=== PATIENT | male | born 1980 | race Caucasian/White ===

== ENCOUNTER 2017-04-10 22:42 | Emergency (ER) | payer OTHER ==
[2017-04-10 22:47] VITALS: RESP 18
[2017-04-11] MEDS ORDERED: DIPH,PERTUS(ACELL)TETVAC-LF 0.5 ML VIAL IM ONE (00:24)
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
[2017-04-11 01:03] VITALS: BP 115/58; PULSE 73; TEMP 98.5
== END 2017-04-11 01:01 | disposition home or self-care (01) ==
LOC: EC 22:42
DX: S51.812A Laceration without foreign body of left forearm, initial encounter (principal); Z23 Encounter for immunization; W22.8XXA Striking against or struck by other objects, initial encounter; Y93.89 Activity, other specified
CPT/HCPCS: 12001; 90471; 90715; 99282

== ENCOUNTER 2018-05-23 22:03 | Emergency (ER) | payer OTHER ==
[2018-05-23] MEDS ORDERED: SODIUM CHLORIDE 0.9% 1,000 ML IV STA ×2 (22:18)
[2018-05-23] MEDS ORDERED: ceFAZolin (PMX-bag) 1,000 MG in DEXTROSE/WATER 1 50ML.BAG IVPB STA (22:18)
[2018-05-23] MEDS ORDERED: ONDANSETRON 4 MG/2 ML VIAL IVP STA (22:18)
[2018-05-23] MEDS ORDERED: DIPH,PERTUS(ACELL)TETVAC-LF 0.5 ML VIAL IM ONE (22:18)
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
--- NOTE | 2018-05-23 22:55 | XR ---
EXAM: XR Left Ankle Complete, 3 or More Views CLINICAL HISTORY: ITS.REASON XR Reason: trauma TECHNIQUE: Frontal, lateral and oblique views of the left ankle. COMPARISON: None. FINDINGS: Bones/joints: Plantar fascia enthesophyte. No acute fracture. No dislocation. Soft tissues: Severe soft tissue swelling about the ankle. IMPRESSION: Severe soft tissue swelling about the ankle. No fracture or dislocation identified.
--- NOTE | 2018-05-23 22:56 | XR ---
EXAM: XR Chest, 1 View CLINICAL HISTORY: ITS.REASON XR Reason: trauma TECHNIQUE: Frontal view of the chest. COMPARISON: None. FINDINGS: Lungs: Unremarkable. No consolidation. Pleural space: Unremarkable. No pneumothorax. Heart: Unremarkable. No cardiomegaly. Mediastinum: Unremarkable. Bones/joints: Unremarkable. IMPRESSION: No acute cardiopulmonary abnormality or displaced fracture.
--- NOTE | 2018-05-23 22:58 | XR ---
EXAM: XR Pelvis, 1 or 2 Views CLINICAL HISTORY: ITS.REASON XR Reason: Trauma TECHNIQUE: Frontal view of the pelvis. COMPARISON: None. FINDINGS: Bones/joints: Unremarkable. No acute fracture. No dislocation. Soft tissues: Unremarkable. IMPRESSION: No fracture or dislocation.
[2018-05-23 23:31] VITALS: BP 104/56; PULSE 91; RESP 16; TEMP 97.7
--- NOTE | 2018-05-23 23:33 | CT ---
EXAM: CT Head Without Intravenous Contrast CLINICAL HISTORY: ITS.REASON CT Reason: trauma TECHNIQUE: Axial computed tomography images of the head/brain without intravenous contrast. CTDI is 45.2 mGy and DLP is 1065 mGy-cm. This CT exam was performed using one or more of the following dose reduction techniques: automated exposure control, adjustment of the mA and/or kV according to patient size, and/or use of iterative reconstruction technique. COMPARISON: None FINDINGS: Brain: Unremarkable. No hemorrhage. No significant white matter disease. No edema. Ventricles: Unremarkable. No ventriculomegaly. Bones/joints: Unremarkable. No acute fracture. Soft tissues: Unremarkable. Sinuses: There is a retention cyst in the left maxillary sinus. Mild mucosal thickening is seen in the ethmoid and sphenoid sinuses. Mastoid air cells: Unremarkable as visualized. No mastoid effusion. IMPRESSION: No intracranial hemorrhage or other acute intracranial abnormality. EXAM: CT Cervical Spine Without Intravenous Contrast CLINICAL HISTORY: ITS.REASON CT Reason: trauma TECHNIQUE: Axial computed tomography images of the cervical spine without intravenous contrast. CTDI is 17.7 mGy and DLP is 533.7 mGy-cm. This CT exam was performed using one or more of the following dose reduction techniques: automated exposure control, adjustment of the mA and/or kV according to patient size, and/or use of iterative reconstruction technique. COMPARISON: None FINDINGS: Vertebrae: Unremarkable. No acute fracture. Discs/spinal canal/neural foramina: Mild degenerative changes seen cervical spine without high-grade spinal canal stenosis. Soft tissues: Unremarkable. IMPRESSION: No fracture or traumatic malalignment of the cervical spine.
--- NOTE | 2018-05-23 23:41 | CT ---
EXAM: CT Chest With Intravenous Contrast CLINICAL HISTORY: ITS.REASON CT Reason: trauma TECHNIQUE: Axial computed tomography images of the chest with intravenous contrast. CTDI is 15.5 mGy and DLP is 1206 mGy-cm. This CT exam was performed using one or more of the following dose reduction techniques: automated exposure control, adjustment of the mA and/or kV according to patient size, and/or use of iterative reconstruction technique. COMPARISON: Chest radiograph 05/23/2018. FINDINGS: Lungs: Unremarkable. No mass. No consolidation. Pleural space: Unremarkable. No pneumothorax. No significant effusion. Heart: Unremarkable. No cardiomegaly. No significant pericardial effusion. Bones/joints: Unremarkable. No acute fracture. No dislocation. Soft tissues: Unremarkable. Vasculature: Unremarkable. No thoracic aortic aneurysm. Lymph nodes: Unremarkable. No enlarged lymph nodes. IMPRESSION: No acute traumatic abnormality in the chest. EXAM: CT Abdomen and Pelvis With Intravenous Contrast CLINICAL HISTORY: ITS.REASON CT Reason: trauma TECHNIQUE: Axial computed tomography images of the abdomen and pelvis with intravenous contrast. CTDI is 15.5 mGy and DLP is 1206 mGy-cm. This CT exam was performed using one or more of the following dose reduction techniques: automated exposure control, adjustment of the mA and/or kV according to patient size, and/or use of iterative reconstruction technique. COMPARISON: Pelvis radiograph 05/23/2018 FINDINGS: Lung bases: Unremarkable. No mass. No consolidation. ABDOMEN: Liver: Unremarkable. No mass. Gallbladder and bile ducts: Unremarkable. No calcified stones. No ductal dilation. Pancreas: Unremarkable. No mass. No ductal dilation. Spleen: Unremarkable. No splenomegaly. Adrenals: Unremarkable. No mass. Kidneys and ureters: Unremarkable. No solid mass. No hydronephrosis. Stomach and bowel: Moderate colonic stool burden. No obstruction. No mucosal thickening. PELVIS: Appendix: No findings to suggest acute appendicitis. Bladder: The urinary bladder is markedly distended. Reproductive: Unremarkable as visualized. ABDOMEN and PELVIS: Intraperitoneal space: Unremarkable. No free air. No significant fluid collection. Bones/joints: No acute fracture. No dislocation. Soft tissues: Soft tissue contusion overlying the left gluteus aric. Vasculature: Unremarkable. No abdominal aortic aneurysm. Lymph nodes: Unremarkable. No enlarged lymph nodes. IMPRESSION: Soft tissue contusion overlying the left gluteus aric. Otherwise, no acute traumatic abnormality of the abdomen or pelvis.
[2018-05-23 23:44] LABS: Basophils # (A) 0.1 k/uL (0-0.2); Basophils % (A) 1 %; Eosinophils # (A) 0.1 k/uL (0-0.7); Eosinophils % (A) 2 %; HCT 43.1 % (39.0-53.0); HGB 14.7 gm/dL (13.0-17.5); Lymphocytes # (A) 1.9 k/uL (1.0-4.8); Lymphocytes % (A) 20 %; MCH 30.8 pg (25.0-35.0); MCHC 34.1 g/dL (31.0-37.0); MCV 90.3 fL (80.0-100.0); Mean Platelet Volume 10.9; Monocytes # (A) 0.6 k/uL (0-1.0); Monocytes % (A) 6 %; Neutrophils # (A) 6.7 k/uL (1.3-7.7); Neutrophils % (A) 70 %; Platelet Count 116 k/uL (150-450); RBC 4.77 m/uL (4.30-5.90); RDW 14.9 % (11.5-15.5); WBC 9.5 k/uL (3.8-10.6)
[2018-05-23 23:46] LABS: ALT 54 U/L (21-72); AST 38 U/L (17-59); Albumin 4.5 g/dL (3.5-5.0); Alkaline Phosphatase 58 U/L (38-126); Amylase 57 U/L (30-110); Anion Gap 15 mmol/L; Blood Urea Nitrogen 15 mg/dL (9-20); Calcium 9.3 mg/dL (8.4-10.2); Carbon Dioxide 21 mmol/L (22-30); Chloride 100 mmol/L (98-107); Glucose 89 mg/dL (74-99); Lipase 195 U/L (23-300); Potassium 3.7 mmol/L (3.5-5.1); Sodium 136 mmol/L (137-145); Total Bilirubin 0.8 mg/dL (0.2-1.3)
--- NOTE | 2018-05-23 23:47 | CT ---
EXAM: CT Left Lower Extremity Without Intravenous Contrast, Ankle CLINICAL HISTORY: ITS.REASON CT Reason: Pain TECHNIQUE: Axial computed tomography images of the left ankle without intravenous contrast. CTDI is 8.6 mGy and DLP is 281 mGy-cm. This CT exam was performed using one or more of the following dose reduction techniques: automated exposure control, adjustment of the mA and/or kV according to patient size, and/or use of iterative reconstruction technique. COMPARISON: Left ankle radiographs 05/23/2018 FINDINGS: Bones/joints: Probable small avulsion fragment of the cuboid. Small probable avulsion fragment of the medial malleolus. No dislocation. Soft tissues: Severe soft tissue swelling about the ankle. IMPRESSION: 1. Probable small avulsion fragment of the cuboid. 2. Small probable avulsion fragment of the medial malleolus. 3. Severe soft tissue swelling about the ankle.
--- NOTE | 2018-05-23 23:50 | CT ---
EXAM: CT Left Lower Extremity Without Intravenous Contrast, Foot CLINICAL HISTORY: ITS.REASON CT Reason: Pain TECHNIQUE: Axial computed tomography images of the left foot without intravenous contrast. CTDI is a 8.7 mGy and DLP is 267.7 mGy-cm. This CT exam was performed using one or more of the following dose reduction techniques: automated exposure control, adjustment of the mA and/or kV according to patient size, and/or use of iterative reconstruction technique. COMPARISON: CTA: 05/23/2018. FINDINGS: Bones/joints: Small probable avulsion fragments of the cuboid and the medial malleolus are again demonstrated. No acute fracture. No dislocation. Soft tissues: Severe soft tissue swelling about the ankle. No radiopaque foreign body. IMPRESSION: 1. Small probable avulsion fragments of the cuboid and the medial malleolus are again demonstrated. Otherwise, no fracture or dislocation of the foot is identified. 2. Severe soft tissue swelling about the ankle.
[2018-05-24 00:09] LABS: Creatine Kinase MB 1.7 ng/mL (0.0-2.4)
[2018-05-24 00:19] LABS: Alcohol 218 mg/dL
[2018-05-24] MEDS ORDERED: KETOROLAC 30 MG/ML 1 ML VIAL IVP STA (00:20)
[2018-05-24] MEDS ORDERED: Acetaminophen-Codeine 300-30mg TAB PO STA (00:20)
[2018-05-24] MEDS ORDERED: ACET/COD 300 MG/30 MG STARTER PACK 6 TAB BTL PO STA (00:20)
[2018-05-24 00:27] LABS: Partial Thromboplastin Time 26.2 sec (22.0-30.0); Prothrombin Time 10.7 sec (9.0-12.0)
[2018-05-24 00:33] LABS: Appearance,Urine Clear (Clear); Bilirubin,Urine Negative (Negative); Blood,Urine Negative (Negative); Color,Urine Light Yellow; Glucose,Urine (UA) Negative (Negative); Ketones,Urine Negative (Negative); Leukocyte Esterase,Urine Negative (Negative); Nitrite,Urine Negative (Negative); PH, Urine 6.5 (5.0-8.0); Protein,Urine Negative (Negative); Specific Gravity,Urine 1.011 (1.001-1.035); Urobilinogen,Urine <2.0 mg/dL (<2.0)
[2018-05-24 00:51] LABS: Amphetamine Screen,Urine Not Detected (NotDetected); Barbiturate Screen,Urine Not Detected (NotDetected); Benzodiazepines Screen,Urine Not Detected (NotDetected); Cocaine Screen,Urine Not Detected (NotDetected); Methadone Screen, Urine Not Detected (NotDetected); Opiate Screen,Urine Not Detected (NotDetected); Oxycodone Screen, Urine Not Detected (NotDetected); Phencyclidine Screen,Urine Not Detected (NotDetected); Tricyclic Antidepressant,Urine Not Detected (NotDetected); Urn Cannabinoid Scrn Not Detected (NotDetected)
== END 2018-05-24 02:37 | disposition home or self-care (01) ==
LOC: EC 22:03
DX: S92.212A Displaced fracture of cuboid bone of left foot, initial encounter for closed fracture (principal); S70.312A Abrasion, left thigh, initial encounter; S20.319A Abrasion of unspecified front wall of thorax, initial encounter; Z53.29 Procedure and treatment not carried out because of patient's decision for other reasons; V86.06XA Driver of dirt bike or motor/cross bike injured in traffic accident, initial encounter
CPT/HCPCS: 99285; 29515; 96365; 96375; 96376; 36415 ×2; 93005; 80053; 82150; 82550; 82553; 83605; 83690; 85025; 85610; 85730; 81003; 80306; 72170; 73610; 71045; 72125; 70450; 71260; 74177; 73700 ×2; G0480; J1885; J0690; Q9967; 80320; 84484

== ENCOUNTER → 2023-06-26 | Outpatient (CLI) | payer SELFPAY ==
--- NOTE | 2023-06-26 20:06 | CA ---
Exercise Stress Test Report Name: Mau Lubin Exam Date: 06/26/2023 10:07 Exam Location: [place] Stress Ht (in): 61 Wt (lb): 228 BSA: 2.00 Ordering Phys: Deng Nam DO Referring Phys: Deng Nam DO Technologist: Ruth Stovall RDCS Age: 42 Gender: M : 1980 Procedure CPT: Indications: R07.9 CHEST PAIN I10 HTN ICD-10 Codes: Patient History: Medications: LISINOPRIL Meds past 24 hrs: Pretest Chest Pain: STRESS TEST Nixon Protocol Exercise Duration (min:sec): 11:[address] Depressions (mm): Angina Score: Valero Score: Resting HR (bpm): 78 Peak HR (bpm): 159 Resting BP (mmHg): 145 / 91 Peak BP (mmHg): 210 / 66 MPHR: 179 Target HR: 152 % MPHR: 89 METS: 12.1 Total Dose: Peak Dose: Atropine: Double Product: 16251 BP Response: Stress Termination: Reached target heart rate Stress Symptoms: NO SYMPTOMS Stress Summary: ECG ANALYSIS Resting ECG: Stress ECG: CONCLUSIONS Good exercise tolerance Normal electrocardiogram stress testing Dr. Yared Gonzalez MD (Electronically Signed) Final Date: 26 Jun 2023 20:05
== END | disposition home or self-care (01) ==
LOC: RADNMMAIN 09:37
PROVIDERS: ATTEND Family Medicine
DX: R07.9 Chest pain, unspecified (principal); I10 Essential (primary) hypertension
CPT/HCPCS: 93017

== ENCOUNTER 2024-07-25 17:34 | Emergency (ER) | payer OTHER ==
--- NOTE | 2024-07-25 18:01 | ED ---
Back Pain HPI - General Chief Complaint: Back Pain/Injury Stated Complaint: Back Pain/Numbness down R leg Time Seen by Provider: 07/25/24 17:45 Source: patient, family, RN notes reviewed Limitations: no limitations - History of Present Illness Initial Comments: 44-year-old male presents emergency room with complaints of lumbar back pain with radiation into the anterior posterior right leg described as a tingling sensation. Patient states that on he was picking up something heavy when he felt a pulling sensation in his back. He states he has been taking Tylenol Motrin, however this is not helped alleviate symptoms. He states that he has been experiencing muscle spasms of his right thigh. He denies falls, loss of bladder bowel control, saddle esthesia, previous surgeries of the lower back. Denies dysuria or hematuria. - Related Data Previous Rx's Medication Instructions Recorded Cyclobenzaprine [Flexeril] 10 mg PO TID PRN #15 tab 07/25/24 Ibuprofen [Motrin] 800 mg PO Q8HR PRN #30 tab 07/25/24 Allergies Allergy/AdvReac Type Severity Reaction Status Date / Time No Known Allergies Allergy Verified 05/23/18 23:31 Review of Systems ROS Statement: Those systems with pertinent positive or pertinent negative responses have been documented in the HPI. ROS Other: All systems not noted in ROS Statement are negative. Past Medical History Past Medical History: No Reported History History of Any Multi-Drug Resistant Organisms: None Reported Additional Past Surgical History / Comment(s): left leg - acl Past Psychological History: No Psychological Hx Reported Past Alcohol Use History: Occasional Past Drug Use History: None Reported General Exam Limitations: no limitations General appearance: alert, in no apparent distress Neck exam: Present: normal inspection. Absent: tenderness, meningismus, lymphadenopathy Respiratory exam: Present: normal lung sounds bilaterally. Absent: respiratory distress, wheezes, rales, rhonchi, stridor Cardiovascular Exam: Present: regular rate, normal rhythm, normal heart sounds. Absent: systolic murmur, diastolic murmur, rubs, gallop, clicks GI/Abdominal exam: Present: soft, normal bowel sounds. Absent: distended, tenderness, guarding, rebound, rigid Extremities exam: Present: normal inspection, full ROM, normal capillary refill. Absent: tenderness, pedal edema, joint swelling, calf tenderness Back exam: Present: tenderness (lumbar spine). Absent: CVA tenderness (R), CVA tenderness (L) Expanded Back exam: Positive Straight Leg Raise: Right Neurological exam: Present: alert, oriented X3, CN II-XII intact Course Vital Signs 07/25/24 07/25/24 17:42 19:04 Temperature 98 F 98.0 F Pulse Rate 84 76 Respiratory 16 18 Rate Blood Pressure 177/91 170/86 O2 Sat by Pulse 98 99 Oximetry Medical Decision Making - Medical Decision Making Was pt. sent in by a medical professional or institution (, PA, MILITARY SCIENCE INSTRUCTOR, urgent care, hospital, or group home...) When possible be specific @ -No Did you speak to anyone other than the patient for history (EMS, parent, family, police, friend...)? What history was obtained from this source @ -No Did you review nursing and triage notes (agree or disagree)? Why? @ -I reviewed and agree with nursing and triage notes Were old charts reviewed (outside hosp., previous admission, EMS record, old EKG, old radiological studies, urgent care reports/EKG's, group home records)? Report findings @ -No old charts were reviewed Differential Diagnosis (chest pain, altered mental status, abdominal pain women, abdominal pain men, vaginal bleeding, weakness, fever, dyspnea, syncope, headache, dizziness, GI bleed, back pain, seizure, CVA, palpatations, mental health, musculoskeletal)? @ -Differential Back Pain: Strain, zoster, cauda equina syndrome, epidural abscess, vertebral osteomyelitis, discitis, fracture, subluxation, disc herniation, DJD, spinal stenosis, dissection, AAA, pancreatitis, peptic ulcer disease, pyelonephritis, kidney stone, this is not meant to be an all-inclusive list. EKG interpreted by me (3pts min.). @ -None X-rays interpreted by me (1pt min.). @ -X-ray imaging of the lumbar spine no fractures or dislocations noted. CT interpreted by me (1pt min.). @ -None done U/S interpreted by me (1pt. min.). @ -None done What testing was considered but not performed or refused? (CT, X-rays, U/S, labs)? Why? @ -None What meds were considered but not given or refused? Why? @ -None Did you discuss the management of the patient with other professionals (professionals i.e. DrMel, PA, MILITARY SCIENCE INSTRUCTOR, lab, RT, psych nurse, home health care social worker, congregational care pastor, teacher, logistics officer, geriatric case manager)? Give summary @ -No Was smoking cessation discussed for >3mins.? @ -No Was critical care preformed (if so, how long)? @ -No Were there social determinants of health that impacted care today? How? (Homelessness, low income, unemployed, alcoholism, drug addiction, transportation, low edu. Level, literacy, decrease access to med. care, long term, rehab)? @ -No Was there de-escalation of care discussed even if they declined (Discuss DNR or withdrawal of care, Hospice)? DNR status @ -No What co-morbidities impacted this encounter? (DM, HTN, Smoking, COPD, CAD, Cancer, CVA, ARF, Chemo, Hep., AIDS, mental health diagnosis, sleep apnea, morbid obesity)? @ -None Was patient admitted / discharged? Hospital course, mention meds given and route, prescriptions, significant lab abnormalities, going to OR and other pertinent info. @ -Discharge. 44 male presenting with lumbar back pain and radiculopathy. There are no red flag findings concerning for cauda equina. Pain is reproducible on examination patient has a straight leg test positive on the right side. Patient provided with pain control. X-ray imaging is unremarkable. Patient is discharged with muscle relaxers and have discussed supportive treatment at bedside. Case discussed with Dr. Garcia Undiagnosed new problem with uncertain prognosis? @ -No Drug Therapy requiring intensive monitoring for toxicity (Heparin, Nitro, Insulin, Cardizem)? @ -No Were any procedures done? @ -No Diagnosis/symptom? @ -Lumbar back pain radiculopathy Acute, or Chronic, or Acute on Chronic? @ -Acute Uncomplicated (without systemic symptoms) or Complicated (systemic symptoms)? @ -Uncomplicated Side effects of treatment? @ -No Exacerbation, Progression, or Severe Exacerbation? @ -No Poses a threat to life or bodily function? How? (Chest pain, [place], [place], pneumonia, PE, COPD, DKA, ARF, appy, cholecystitis, CVA, Diverticulitis, Homicidal, Suicidal, threat to staff... and all critical care pts) @ -No Disposition Clinical Impression: Muscle spasm Disposition: HOME SELF-CARE Condition: Stable Instructions (If sedation given, give patient instructions): Muscle Spasm (ED) Additional Instructions: Please return to the Emergency Department if symptoms worsen or any other concerns. Prescriptions: Cyclobenzaprine [Flexeril] 10 mg PO TID PRN #15 tab PRN Reason: Muscle Spasm Ibuprofen [Motrin] 800 mg PO Q8HR PRN #30 tab PRN Reason: Pain Is patient prescribed a controlled substance at d/c from ED?: No Referrals: Deng Nam Jr, [Primary Care Provider] - 1-2 days Time of Disposition: 18:55
[2024-07-25] MEDS: HYDROcodone/APAP 7.5-325MG 1 EACH TAB PO ONE (18:05)
[2024-07-25] MEDS: ORPHENADRINE 30 MG/ML 2 ML VIAL IM STA (18:05)
[2024-07-25] MEDS: LIDOCAINE 4% PATCH TOPICAL ONE (18:09)
[2024-07-25] MEDS: predniSONE 50 MG TAB PO STA (18:15)
--- NOTE | 2024-07-25 18:50 | XR ---
EXAMINATION TYPE: XR lumbar spine 2 or 3V DATE OF EXAM: 07/25/2024 6:31 PM COMPARISON: None. CLINICAL INDICATION: Male, 44 years old with history of pain w/ radiation, pain TECHNIQUE: 3 view(s) obtained. FINDINGS: There are 5 lumbar-type vertebral bodies. Pedicles are intact. There is narrowing of the L5-S1 disc h eight. Remaining disc heights are preserved. Heights are preserved. Vertebral body heights are preser tracy. Alignment appears normal. IMPRESSION: 1. Degenerative disc change L5-S1. [facility], , 07/25/2024 6:47 PM
[2024-07-25] MEDS: ACET/COD 300 MG/30 MG STARTER PACK 6 TAB BTL PO STA (18:59)
[2024-07-25] MEDS: traMADol 50 MG STARTER PACK 3 TAB BTL PO STA (18:59)
[2024-07-25 19:05] VITALS: BP 170/86; PULSE 76; RESP 18; TEMP 98
== END 2024-07-25 20:40 | disposition home or self-care (01) ==
LOC: EC 17:34
DX: M54.16 Radiculopathy, lumbar region (principal); M62.830 Muscle spasm of back
CPT/HCPCS: 72100; 99283; 96372; J2360; J7512

== ENCOUNTER 2024-08-22 22:07 | Emergency (ER) | payer OTHER ==
[2024-08-22 22:10] VITALS: TEMP 98
--- NOTE | 2024-08-22 22:24 | ED ---
General Adult HPI - General Chief complaint: Dizziness Stated complaint: Neuro symptoms Time Seen by Provider: 08/22/24 22:13 Source: patient Mode of arrival: ambulatory Limitations: no limitations - History of Present Illness Initial comments: This patient is a 44-year-old man who presents to have evaluation because he says that he does not feel like his usual self. He describes feeling dizzy, feeling shaky and anxious. The patient states that this has come on over the course of the evening. He had been at home he states and not unusually exerting himself. The patient does note that he drinks regularly. He states he can drink up to a case of beer on the weekends but today he only had 8-9 beers. Onset/Timin -: days(s) Severity scale (1-10): 0 Consistency: constant Improves with: none Worsens with: none Associated Symptoms: other (Feeling dizzy and paresthesias) - Related Data Previous Rx's Medication Instructions Recorded Cyclobenzaprine [Flexeril] 10 mg PO TID PRN #15 tab 07/25/24 Ibuprofen [Motrin] 800 mg PO Q8HR PRN #30 tab 07/25/24 Allergies Allergy/AdvReac Type Severity Reaction Status Date / Time No Known Allergies Allergy Verified 08/22/24 22:10 Review of Systems ROS Statement: Those systems with pertinent positive or pertinent negative responses have been documented in the HPI. ROS Other: All systems not noted in ROS Statement are negative. Constitutional: Denies: fever, chills, weakness Eyes: Denies: vision change Respiratory: Denies: cough, dyspnea, wheezes Cardiovascular: Reports: palpitations. Denies: chest pain, orthopnea, edema, syncope Gastrointestinal: Denies: abdominal pain, nausea, vomiting, diarrhea Genitourinary: Denies: dysuria, hematuria Musculoskeletal: Denies: back pain Skin: Denies: rash Neurological: Denies: headache, weakness, numbness Psychiatric: Reports: anxiety. Denies: depression, suicidal thoughts Past Medical History Past Medical History: No Reported History History of Any Multi-Drug Resistant Organisms: None Reported Additional Past Surgical History / Comment(s): left leg - acl Past Psychological History: No Psychological Hx Reported Smoking Status: Never smoker Past Alcohol Use History: Occasional Past Drug Use History: None Reported General Exam Limitations: no limitations General appearance: alert, in no apparent distress, anxious Head exam: Present: atraumatic, normocephalic Eye exam: Present: normal appearance, PERRL, EOMI. Absent: scleral icterus, conjunctival injection ENT exam: Present: mucous membranes dry Neck exam: Present: normal inspection, full ROM Respiratory exam: Present: normal lung sounds bilaterally. Absent: respiratory distress, wheezes, rales, rhonchi, stridor, accessory muscle use Cardiovascular Exam: Present: regular rate, normal rhythm, normal heart sounds. Absent: systolic murmur, diastolic murmur, rubs, gallop GI/Abdominal exam: Present: soft. Absent: distended, tenderness, guarding, rebound, rigid, mass Extremities exam: Present: normal inspection, normal capillary refill. Absent: pedal edema, calf tenderness Back exam: Present: normal inspection. Absent: CVA tenderness (R), CVA tenderness (L) Neurological exam: Present: alert, oriented X3, CN II-XII intact, motor sensory deficit Psychiatric exam: Present: anxious. Absent: suicidal ideation Skin exam: Present: warm, dry, intact, normal color. Absent: rash Course Vital Signs 08/22/24 08/22/24 08/22/24 22:08 22:58 23:58 Temperature 98 F Pulse Rate 119 H 84 85 Respiratory 20 18 18 Rate Blood Pressure 189/112 161/110 154/101 O2 Sat by Pulse 99 99 97 Oximetry 08/23/24 00:43 Temperature Pulse Rate 96 Respiratory 18 Rate Blood Pressure 148/97 O2 Sat by Pulse 98 Oximetry EKG Findings - EKG Results: EKG: interpreted by ERMD, sinus rhythm, normal axis (Normal), normal QRS (Normal), normal ST/T (Normal) EKG shows: tachycardia (Rate 108 bpm) Medical Decision Making - Medical Decision Making The patient had chest x-ray that I interpreted as negative for acute infiltrate, pneumothorax, congestive heart failure Was pt. sent in by a medical professional or institution (, PA, SECURITY ASSURANCE SPECIALIST, urgent care, hospital, or senior care...) When possible be specific @ -[No] Did you speak to anyone other than the patient for history (EMS, parent, family, police, friend...)? What history was obtained from this source @ -[No] Did you review nursing and triage notes (agree or disagree)? Why? @ -[I reviewed and agree with nursing and triage notes] Were old charts reviewed (outside hosp., previous admission, EMS record, old EKG, old radiological studies, urgent care reports/EKG's, senior care records)? Report findings @ -[No old charts were reviewed] Differential Diagnosis (chest pain, altered mental status, abdominal pain women, abdominal pain men, vaginal bleeding, weakness, fever, dyspnea, syncope, headache, dizziness, GI bleed, back pain, seizure, CVA, palpatations, mental health, musculoskeletal)? @ -[Differential Dizziness: Benign paroxysmal positional Vertigo, Meniere's disease, otitis media, acoustic neuroma, vertebrobasilar insufficiency, cerebellar stroke, encephalitis, hypovolemic, arrhythmia, coronary artery syndrome, anemia, this is not meant to be an all-inclusive list EKG interpreted by me (3pts min.). @ -[I interpreted as above] X-rays interpreted by me (1pt min.). @ -[I interpreted as above CT interpreted by me (1pt min.). @ -[None done] U/S interpreted by me (1pt. min.). @ -[None done] What testing was considered but not performed or refused? (CT, X-rays, U/S, labs)? Why? @ -[None] What meds were considered but not given or refused? Why? @ -[None] Did you discuss the management of the patient with other professionals (professionals i.e. , PA, SECURITY ASSURANCE SPECIALIST, lab, RT, psych nurse, director of social work, dynamite shooter, teacher, staff submarine warfare officer, mental health case manager)? Give summary @ -[No] Was smoking cessation discussed for >3mins.? @ -[No] Was critical care preformed (if so, how long)? @ -[No] Were there social determinants of health that impacted care today? How? (Ho melessness, low income, unemployed, alcoholism, drug addiction, transportation, low edu. Level, literacy, decrease access to med. care, care home, rehab)? @ -[No] Was there de-escalation of care discussed even if they declined (Discuss DNR or withdrawal of care, Hospice)? DNR status @ -[No] What co-morbidities impacted this encounter? (DM, HTN, Smoking, COPD, CAD, Cancer, CVA, ARF, Chemo, Hep., AIDS, mental health diagnosis, sleep apnea, morbid obesity)? @ -[None] Was patient admitted / discharged? Hospital course, mention meds given and route, prescriptions, significant lab abnormalities, going to OR and other pertinent info. @ -This patient is a 44-year-old man who presents for to have evaluation with a constellation of symptoms concerning for alcohol withdrawal. The patient had much less intake this week and then his usual for him. Discussed with the patient tapering off of his alcohol use. He is feeling better here with fluids, benzodiazepines. Discussed that should he be feeling worse in any way he should return to have supervised alcohol withdrawal. The patient states that he does have a close relationship with his primary physician and should be able to help manage decreasing his alcohol that way. Also discussed management of the patient's hypertension, appropriate follow-up and further care related that issue. Undiagnosed new problem with uncertain prognosis? @ -[No] Drug Therapy requiring intensive monitoring for toxicity (Heparin, Nitro, Insulin, Cardizem)? @ -[No] Were any procedures done? @ -[No] Diagnosis/symptom? @ -[Acute on chronic hypertension Alcohol withdrawal symptoms Acute, or Chronic, or Acute on Chronic? @ -[Acute Uncomplicated (without systemic symptoms) or Complicated (systemic symptoms)? @ -[Uncomplicated Side effects of treatment? @ -[No] Exacerbation, Progression, or Severe Exacerbation? @ -[No] Poses a threat to life or bodily function? How? (Chest pain, [place], [place], pneumonia, PE, COPD, DKA, ARF, appy, cholecystitis, CVA, Diverticulitis, Homicidal, Suicidal, threat to staff... and all critical care pts) @ -[Yes there is risk associated with both these problems, appropriate further care discussed, as well as return parameters - Lab Data Result diagrams: 08/22/24 22:25 08/22/24 22:25 Lab Results 08/22/24 08/22/24 08/22/24 Range/Units :25 22:25 : WBC 9.16 (4.50-10.00) 10*3/uL RBC 4.66 (4.40-5.60) 10*6/uL Hgb 15.1 (13.0-17.0) g/dL Hct 43.5 (39.6-50.0) % MCV 93.3 (80.0-97.0) fL MCH 32.4 H (27.0-32.0) pg MCHC 34.7 (32.0-37.0) g/dL Plt Count 202 (140-440) 10*3/uL MPV 9.0 L (9.5-12.2) fL Immature Gran % (Auto) 0.9 % Neutrophils % 59.5 % Lymphocytes % 30.5 % Monocytes % 7.2 % Eosinophils % 1.1 % Basophils % 0.8 % Immature Gran # 0.08 H (0.00-0.04) 10*3/uL Neutrophils # 5.46 (1.80-7.70) 10*3/uL Lymphocytes # 2.79 (0.90-5.00) 10*3/uL Monocytes # 0.66 (0.20-1.00) 10*3/uL Eosinophils # 0.10 (0.04-0.35) 10*3/uL Basophils # 0.07 (0.00-0.10) 10*3/uL Sodium 138 (137-145) mmol/L Potassium 4.1 (3.5-5.1) mmol/L Chloride 101 (98-107) mmol/L Carbon Dioxide 24 (22-30) mmol/L Anion Gap 13 mmol/L BUN 13 (9-20) mg/dL Creatinine 0.67 (0.66-1.25) mg/dL Est GFR (CKD-EPI)AfAm >90 (>60 ml/min/1.73 sqM) Est GFR (CKD-EPI)NonAf >90 (>60 ml/min/1.73 sqM) Glucose 115 H (74-99) mg/dL Lactic Ac Sepsis Rflx Plasma Lactic Acid Jose 2.4 H* (0.7-2.0) mmol/L Calcium 10.2 (8.4-10.2) mg/dL Magnesium 1.9 (1.6-2.3) mg/dL Total Bilirubin 0.8 (0.2-1.3) mg/dL AST 51 (17-59) U/L ALT 68 H (4-49) U/L Alkaline Phosphatase 70 (38-126) U/L Troponin I (0.000-0.034) ng/mL Total Protein 8.0 (6.3-8.2) g/dL Albumin 5.0 (3.5-5.0) g/dL Urine Color Urine Appearance (Clear) Urine pH (5.0-8.0) Ur Specific [place] (1.001-1.035) Urine Protein (Negative) Urine Glucose (UA) (Negative) Urine Ketones (Negative) Urine Blood (Negative) Urine Nitrite (Negative) Urine Bilirubin (Negative) Urine Urobilinogen (<2.0) mg/dL Ur Leukocyte Esterase (Negative) Serum Alcohol 130 mg/dL 08/22/24 08/22/24 08/22/24 Range/Units 22:25 23:31 23:57 WBC (4.50-10.00) 10*3/uL RBC (4.40-5.60) 10*6/uL Hgb (13.0-17.0) g/dL Hct (39.6-50.0) % MCV (80.0-97.0) fL MCH (27.0-32.0) pg MCHC (32.0-37.0) g/dL Plt Count (140-440) 10*3/uL MPV (9.5-12.2) fL Immature Gran % (Auto) % Neutrophils % % Lymphocytes % % Monocytes % % Eosinophils % % Basophils % % Immature Gran # (0.00-0.04) 10*3/uL Neutrophils # (1.80-7.70) 10*3/uL Lymphocytes # (0.90-5.00) 10*3/uL Monocytes # (0.20-1.00) 10*3/uL Eosinophils # (0.04-0.35) 10*3/uL Basophils # (0.00-0.10) 10*3/uL Sodium (137-145) mmol/L Potassium (3.5-5.1) mmol/L Chloride (98-107) mmol/L Carbon Dioxide (22-30) mmol/L Anion Gap mmol/L BUN (9-20) mg/dL Creatinine (0.66-1.25) mg/dL Est GFR (CKD-EPI)AfAm (>60 ml/min/1.73 sqM) Est GFR (CKD-EPI)NonAf (>60 ml/min/1.73 sqM) Glucose (74-99) mg/dL Lactic Ac Sepsis Rflx Y Plasma Lactic Acid Jose (0.7-2.0) mmol/L Calcium (8.4-10.2) mg/dL Magnesium (1.6-2.3) mg/dL Total Bilirubin (0.2-1.3) mg/dL AST (17-59) U/L ALT (4-49) U/L Alkaline Phosphatase (38-126) U/L Troponin I <0.012 (0.000-0.034) ng/mL Total Protein (6.3-8.2) g/dL Albumin (3.5-5.0) g/dL Urine Color Colorless Urine Appearance Clear (Clear) Urine pH 5.5 (5.0-8.0) Ur Specific [place] 1.001 (1.001-1.035) Urine Protein Negative (Negative) Urine Glucose (UA) Negative (Negative) Urine Ketones Negative (Negative) Urine Blood Negative (Negative) Urine Nitrite Negative (Negative) Urine Bilirubin Negative (Negative) Urine Urobilinogen <2.0 (<2.0) mg/dL Ur Leukocyte Esterase Negative (Negative) Serum Alcohol mg/dL Disposition Clinical Impression: Hypertension, Alcohol abuse Disposition: HOME SELF-CARE Condition: Good Instructions (If sedation given, give patient instructions): Hypertension (ED) Is patient prescribed a controlled substance at d/c from ED?: No Referrals: Deng Nam Jr, [Primary Care Provider] - 1-2 days
[2024-08-22 22:39] LABS: Basophils # (A) 0.07 10*3/uL (0.00-0.10); Basophils % (A) 0.8 %; Eosinophils # (A) 0.10 10*3/uL (0.04-0.35); Eosinophils % (A) 1.1 %; HCT 43.5 % (39.6-50.0); HGB 15.1 g/dL (13.0-17.0); Lymphocytes # (A) 2.79 10*3/uL (0.90-5.00); Lymphocytes % (A) 30.5 %; MCH 32.4 pg (27.0-32.0); MCHC 34.7 g/dL (32.0-37.0); MCV 93.3 fL (80.0-97.0); Monocytes # (A) 0.66 10*3/uL (0.20-1.00); Monocytes % (A) 7.2 %; Neutrophils # (A) 5.46 10*3/uL (1.80-7.70); Neutrophils % (A) 59.5 %; Platelet Count 202 10*3/uL (140-440); RBC 4.66 10*6/uL (4.40-5.60); RDW 12.0 % (11.5-14.5); WBC 9.16 10*3/uL (4.50-10.00)
[2024-08-22] MEDS: SODIUM CHLORIDE 0.9% 1,000 ML IV STA (22:54)
[2024-08-22] MEDS: LORazepam 1 MG/0.5 ML VIAL IV STA (22:54)
[2024-08-22 23:00] VITALS: RESP 18
[2024-08-22 23:07] LABS: ALT 68 U/L (4-49); AST 51 U/L (17-59); African American GFR (CKD) >90 (>60 ml/min/1.73 sqM); Albumin 5.0 g/dL (3.5-5.0); Alkaline Phosphatase 70 U/L (38-126); Anion Gap 13 mmol/L; Blood Urea Nitrogen 13 mg/dL (9-20); Calcium 10.2 mg/dL (8.4-10.2); Carbon Dioxide 24 mmol/L (22-30); Chloride 101 mmol/L (98-107); Glucose 115 mg/dL (74-99); Magnesium 1.9 mg/dL (1.6-2.3); Non-African American GFR(CKD) >90 (>60 ml/min/1.73 sqM); Potassium 4.1 mmol/L (3.5-5.1); Sodium 138 mmol/L (137-145); Total Protein 8.0 g/dL (6.3-8.2)
[2024-08-22] MEDS: SODIUM CHLORIDE 0.9% 1,000 ML IV ONE (23:57)
--- NOTE | 2024-08-23 00:04 | XR ---
EXAM: XR Chest, 1 View CLINICAL HISTORY: XR Reason: hypertension TECHNIQUE: Frontal view of the chest. COMPARISON: Chest CT from 05/23/2018 FINDINGS: Lungs: Unremarkable. No consolidation. Pleural space: Unremarkable. No pneumothorax. Heart: The cardiac silhouette is upper normal in size. Mediastinum: Unremarkable. Normal mediastinal contour. Bones/joints: Mild osteophytosis in the lower thoracic spine. No acute fracture. IMPRESSION: The cardiac silhouette is upper normal in size. No pulmonary edema or acute focal infiltrate is seen.
[2024-08-23 00:32] LABS: Bilirubin,Urine Negative (Negative); Blood,Urine Negative (Negative); Color,Urine Colorless; Glucose,Urine (UA) Negative (Negative); Ketones,Urine Negative (Negative); Leukocyte Esterase,Urine Negative (Negative); Nitrite,Urine Negative (Negative); PH, Urine 5.5 (5.0-8.0); Protein,Urine Negative (Negative); Specific Gravity,Urine 1.001 (1.001-1.035); Urobilinogen,Urine <2.0 mg/dL (<2.0)
[2024-08-23 00:44] VITALS: BP 148/97; PULSE 96
== END 2024-08-23 00:46 | disposition home or self-care (01) ==
LOC: EC 22:07
DX: F10.10 Alcohol abuse, uncomplicated (principal); I10 Essential (primary) hypertension; Y90.6 Blood alcohol level of 120-199 mg/100 ml
CPT/HCPCS: 36415; 93005; 80053; 83605; 83735; 84484; 85025; 81003; 80320; 71045; 99284; 96374; 96361; J2060